=== PATIENT | male | born 1990 | race Caucasian/White ===

== ENCOUNTER 2016-06-09 09:41 | Emergency (ER) | payer MEDICAID ==
[~2016-06-09] VITALS: Wt 80.0 kg
[2016-06-09] MEDS ORDERED: DIPHTH/TET/ACEL PERTUSS (ADULT) 0.5 ML VIAL IM* ONE (10:30)
[2016-06-09] MEDS ORDERED: ACET500C5 PO (10:54)
[2016-06-09 11:12] VITALS: BP 144/87; PULSE 79; RESP 18; TEMP 98.1
--- NOTE | 2016-06-09 11:28 | ERD ---
ER Documentation Chief Complaint Date/Time DATE: 06/09/16 TIME: 11:18 Chief Complaint scalp laceration from hitting a tube. no loc HPI 26-year-old male with no significant past medical history presents the ED complaining of a scalp laceration that occurred earlier today. States that he was at work and a metal pipe accidentally hit the left side of his head. Denies any loss of consciousness. Denies any headache, nausea, vomiting, chest pain, shortness of breath, dizziness, weakness, numbness or tingling. States that he is not up-to-date with his tetanus vaccine. Denies taking blood thinners. ROS All systems reviewed and are negative except as per history of present illness. Medications Home Meds Active Scripts Acetaminophen* (Tylophen*) 500 Mg Capsule, 1 CAP PO Q6H Y for PAIN AND OR ELEVATED TEMP, #20 CAP Prov:MICHAEL MEEK PA-C 06/09/16 PMhx/Soc Medical and Surgical Hx: pt denies Medical Hx, pt denies Surgical Hx Hx Alcohol Use: Yes (socially) Hx Substance Use: No Hx Tobacco Use: Yes Smoking Status: Current some day smoker Physical Exam Vitals Vital Signs Date Time Temp Pulse Resp B/P Pulse Ox O2 Delivery O2 Flow Rate FiO2 06/09/16 11:12 98.1 79 18 144/87 100 Room Air 06/09/16 09:43 98.5 78 20 145/81 100 Physical Exam Const: [id number], well-nourished. In no acute distress. Head: Atraumatic, normocephalic. 3 cm superficial laceration noted on the left side of patient's scalp. Slight hematoma noted. No acosta sign. Eyes: Normal Conjunctiva without injection. No purulent discharge. PERRLA. EOMI ENT: Normal external ear. Ear canal without erythema. Tympanic membrane pearly johnson without effusion or bulging. No hemotympanum. Nasal canal clear with normal turbinates. Moist oropharynx without tonsillar exudates. Non- erythematous pharynx. Uvula midline. No drooling. No trismus. Neck: No cervical midline tenderness. Full range of motion. No meningismus. No cervical lymphadenopathy. No JVD. Resp: Clear to auscultation bilaterally. No wheezing, rhonchi, rales, or crackles. No accessory muscle use. No retractions. Cardio: Regular rate and rhythm. No murmurs, rubs or gallops. Skin: Normal skin turgor. No petechiae or rashes Ext: No cyanosis, or edema. Distal pulses intact bilaterally. Neur: Awake and alert. Normal gait. Normal coordination. Cranial Nerves II- VII intact. Normal finger to nose. Muscle strength 5/5. Sensation intact. Psych: Normal Mood and Affect Results 24 hrs Current Medications Medications (Trade) Dose Ordered Sig/Herb Route PRN Reason Start Time Stop Time Status Last Admin Dose Admin Diphtheria/ Tetanus/Acell Pertussis (Adacel) 0.5 ml ONCE ONCE IM* 06/09/16 10:30 06/09/16 10:33 DC 06/09/16 10:26 Procedures/MDM This is a 26-year-old male with no significant past medical history presents the ED complaining of a scalp laceration sustained earlier today after acute head injury from a metal pipe. Patient is afebrile nontoxic appearing. Patient has normal vital signs. Patient gave consent to clean the affected area with normal saline and betadine. Patient sustained a superficial 3 cm laceration. No sutures or seymour indicated at this time. Patient is appropriate for Dermabond at this time for closure of the superficial laceration. Patient is not up-to-date with his tetanus vaccine, therefore he was given here in the ED. A CT of the brain without contrast was discussed with this patient at this time. Patient stated that he would like to observe his symptoms rather than obtaining CT. I thought this is appropriate since patient did not lose consciousness. Patient also denies any headache, nausea, vomiting, acute neurological deficits. Patient is neurologically intact. Low suspicion for intracranial bleed, subarachnoid hemorrhage, epidural hematoma, subdural hematoma, meningitis, TIA, stroke, or other emergent conditions. Discharge medications: Tylenol Follow up with primary care physician in 1-2 days for a wound check of the left scalp laceration. Acute Head Injury with wake up instructions given to patient. Instructed patient to return to the ED sooner for any worsening symptoms. Patient's questions were answered. Patient understood and agreed with discharge plan. Patient discharged stable. Departure Diagnosis: Primary Impression: Scalp laceration Encounter type: initial encounter Qualified Code: S01.01XA - Scalp laceration, initial encounter Condition: Stable Patient Instructions: HEAD INJURY with Wake-Up (Adult), Laceration, Scalp Referrals: [facility] YOU HAVE RECEIVED A MEDICAL SCREENING EXAM AND THE RESULTS INDICATE THAT YOU DO NOT HAVE A CONDITION THAT REQUIRES URGENT TREATMENT IN THE EMERGENCY DEPARTMENT. FURTHER EVALUATION AND TREATMENT OF YOUR CONDITION CAN WAIT UNTIL YOU ARE SEEN IN YOUR DOCTORS OFFICE WITHIN THE NEXT 1-2 DAYS. IT IS YOUR RESPONSIBILITY TO MAKE AN APPOINTMENT FOR FOLOW-UP CARE. IF YOU HAVE A PRIMARY DOCTOR --you should call your primary doctor and schedule an appointment IF YOU DO NOT HAVE A PRIMARY DOCTOR YOU CAN CALL OUR PHYSICIAN REFERRAL HOTLINE AT IF YOU CAN NOT AFFORD TO SEE A PHYSICIAN YOU CAN CHOSE FROM THE FOLLOWING [facility] [address] [facility] [address] [facility] [address] [facility] [address] [facility] [address] [facility]. [facility]. [address] [facility]. [facility] YOU HAVE RECEIVED A MEDICAL SCREENING EXAM AND THE RESULTS INDICATE THAT YOU DO NOT HAVE A CONDITION THAT REQUIRES URGENT TREATMENT IN THE EMERGENCY DEPARTMENT. FURTHER EVALUATION AND TREATMENT OF YOUR CONDITION CAN WAIT UNTIL YOU ARE SEEN IN YOUR DOCTORS OFFICE WITHIN THE NEXT 1-2 DAYS. IT IS YOUR RESPONSIBILITY TO MAKE AN APPOINTMENT FOR FOLOW-UP CARE. IF YOU HAVE A PRIMARY DOCTOR --you should call your primary doctor and schedule and appointment IF YOU DO NOT HAVE A PRIMARY DOCTOR YOU CAN CALL OUR PHYSICIAN REFERRAL HOTLINE AT . IF YOU CAN NOT AFFORD TO SEE A PHYSICIAN YOU CAN CHOSE FROM THE FOLLOWING [facility] INSTITUTIONS: [facility] [address] [place] [address] [facility] [address] [place] [address] [facility] [address] [place] [address] [facility]CIALT[facility] Additional Instructions: Visite a claudio schultz para un EXAMEN.Regrese a estas instalaciones si no se mejora charley esperbamos o charley le dijimos. MICHAEL MEEK PA-C Jun 09, 2016 11:28
== END 2016-06-09 11:13 | disposition home or self-care (01) ==
LOC: FTE 09:41
DX: S01.01XA Laceration without foreign body of scalp, initial encounter (principal); F17.210 Nicotine dependence, cigarettes, uncomplicated; W20.8XXA Other cause of strike by thrown, projected or falling object, initial encounter; Y92.89 Other specified places as the place of occurrence of the external cause; Z23 Encounter for immunization
CPT/HCPCS: 12002; 90471; Z7502

== ENCOUNTER 2018-10-19 19:46 | Emergency (ER) | payer MEDICAID ==
[~2018-10-19] VITALS: Ht 170.2 cm; Wt 100.2 kg
[~2018-10-19 19:46] MED LIST: ACET500C5 PO
[2018-10-19 19:50] VITALS: BP 161/91; PULSE 80; RESP 20; Ht 170.2 cm; Wt 100.2 kg
[2018-10-19] MEDS ORDERED: FLUORESCEIN STRIP LEFT EYE ONE (21:00)
[2018-10-19] MEDS ORDERED: ACET-141 PO (21:46)
[2018-10-19] MEDS ORDERED: POLY10DR19 LEFT EYE (21:46)
[2018-10-19] MEDS ORDERED: IBUP-1542 PO (21:46)
--- NOTE | 2018-10-19 21:53 | ERD ---
ER Documentation Chief Complaint Chief Complaint L eye itching/redness after working in the garden today; denies blurred vis HPI 28-year-old male presents with left eye redness and itchiness and pain x1 day. Patient is there is working regarding using the lawnmower he thinks he may have a foreign body. He states that he has 6 out of 10 pain. No discharge or fever noted. No chest pain or shortness of breath. No other modifying factors noted, no treatment tried at home ROS All systems reviewed and are negative except as per history of present illness. Medications Home Meds Active Scripts Acetaminophen* (Acetaminophen*) 500 MG Extra Strength Tablet, 500 MG PO Q4H PRN for PAIN AND OR ELEVATED TEMP, #30 TAB Prov:KENNEDI HOFFMAN DO 10/19/18 Ibuprofen* (Motrin*) 600 Mg Tab, 600 MG PO Q6H PRN for PAIN AND OR ELEVATED TEMP, #30 TAB Prov:KENNEDI HOFFMAN DO 10/19/18 Polymyxin B Sulfate-TMP* (Polymyxin B-TMP Eye Drops*) 10 Ml Drops, 1 DROP LEFT EYE QID for corneal laceration for 7 Days, #1 BOTTLE Prov:KENNEDI HOFFMAN DO 10/19/18 Acetaminophen* (Tylophen*) 500 Mg Capsule, 1 CAP PO Q6H PRN for PAIN AND OR ELEVATED TEMP, #20 CAP Prov:MICHAEL MEEK PA-C 06/09/16 Allergies Allergies: Coded Allergies: No Known Allergy (Unverified , 10/19/18) PMhx/Soc Medical and Surgical Hx: pt denies Medical Hx, pt denies Surgical Hx Hx Alcohol Use: Yes (socially) Hx Substance Use: No Hx Tobacco Use: No Smoking Status: Former smoker FmHx Family History: No coronary disease Physical Exam Vitals Vital Signs Date Temp Pulse Resp B/P (MAP) Pulse Ox O2 O2 Flow FiO2 Time Delivery Rate 10/19/18 98.4 80 20 161/91 97 19:50 (114) Physical Exam Const: No acute distress Head: Atraumatic Eyes: Conjunctiva diffusely red, no foreign body noted on examination, with wood lamp with fluorescein examination shows a small abrasion over the upper part of the left cornea ENT: Normal External Ears, Nose and Mouth. Neck: Full range of motion. No meningismus. Resp: Clear to auscultation bilaterally Cardio: Regular rate and rhythm, no murmurs Skin: No petechiae or rashes Ext: No cyanosis, or edema Neur: Awake and alert Psych: Normal Mood and Affect Results 24 hrs Current Medications Medications Dose Sig/Herb Start Time Status Last (Trade) Ordered Route PRN Stop Time Admin Dose Reason Admin Fluorescein 1 strip ONCE ONCE 10/19/18 DC Sodium LEFT EYE 21:00 ([id number] 10/19/18 21:01 p) Procedures/MDM Medical Decision Making: Differential diagnosis includes but not limited to left corneal abrasion, iritis, conjunctivitis, uveitis Patient appeared well on physical exam. Left eye examination under Castillo lamp was forcing after application of tetracaine showed a left eye corneal abrasion. Patient given prescription for antibiotic eyedrops and pain medications. Advised to follow with ophthalmology if the pain does not improve. Information follow-up given to patient. Patient advised to follow up with PCP in 1-2 days. Patient advised to return to ED for new or worsening symptoms. Patient stable on discharge from the ED. Disclaimer: Inadvertent spelling and grammatical errors are likely due to EHR/dictation software use and do not reflect on the overall quality of patient care. Also, please note that the electronic time recorded on this note does not necessarily reflect the actual time of the patient encounter. Departure Diagnosis: Primary Impression: Corneal abrasion, left Encounter type: initial encounter Qualified Codes: S05.02XA - Injury of conjunctiva and corneal abrasion without foreign body, left eye, initial encounter Condition: Fair Patient Instructions: Corneal Abrasion Referrals: [facility] YOU HAVE RECEIVED A MEDICAL SCREENING EXAM AND THE RESULTS INDICATE THAT YOU DO NOT HAVE A CONDITION THAT REQUIRES URGENT TREATMENT IN THE EMERGENCY DEPARTMENT. FURTHER EVALUATION AND TREATMENT OF YOUR CONDITION CAN WAIT UNTIL YOU ARE SEEN IN YOUR DOCTORS OFFICE WITHIN THE NEXT 1-2 DAYS. IT IS YOUR RESPONSIBILITY TO MAKE AN APPOINTMENT FOR FOLOW-UP CARE. IF YOU HAVE A PRIMARY DOCTOR --you should call your primary doctor and schedule an appointment IF YOU DO NOT HAVE A PRIMARY DOCTOR YOU CAN CALL OUR PHYSICIAN REFERRAL HOTLINE AT IF YOU CAN NOT AFFORD TO SEE A PHYSICIAN YOU CAN CHOSE FROM THE FOLLOWING [facility] [address] [facility]. [facility] [address] [facility] [address] [facility] [facility] [address] [facility]. [facility] [address] [facility]. [facility]. [address] [facility] [place] Hours: Mon - Fri 9:00 AM - 5:00 PM Additional Instructions: Llame al doctor MAANA y amanda jaimie DENISE PARA DENTRO DE 1-2 HARRIS.Dgale a la secretaria que nosotros le instruimos hacer esta denise.Avise o llame si snyder condicin se empeora antes de la denise. Regresa aqui si peor o no mejor. KENNEDI HOFFMAN DO October 19, 2018 21:53
== END 2018-10-19 21:59 | disposition home or self-care (01) ==
LOC: FTE 19:46
DX: S05.02XA Injury of conjunctiva and corneal abrasion without foreign body, left eye, initial encounter (principal); X58.XXXA Exposure to other specified factors, initial encounter; Y92.9 Unspecified place or not applicable; Z87.891 Personal history of nicotine dependence
CPT/HCPCS: Z7502; Z7610; 99283